=== PATIENT | female | born 2005 | race Two or more races ===

== ENCOUNTER 2024-07-02 09:55 | Emergency (ER) | payer MEDICAID, SELFPAY ==
[2024-07-02 10:11] VITALS: BP 142/93; PULSE 110; RESP 18; TEMP 36.9; O2SAT 98
--- NOTE | 2024-07-02 10:15 | XR_ITS ---
Examination: CT abdomen with intravenous contrast CT pelvis with intravenous contrast 2-D coronal reconstructions 2-D sagittal reconstructions Date and time of exam:July 02, 2024 at 1207 hours Comparison October 04, 2017 INDICATIONS: Severe upper abdominal pain with nausea today. CTDI: vol (mGy) 7.70 DLP: (mGycm) 439 Technique: Multiple axial sections of the abdomen and pelvis have been obtained. 64 slice high-resolution scanner used. 3 mm axial sections have been obtained, post intravenous injection 60 cc [id number] 2-D sagittal coronal reconstructions Low dose protocols, automated exposure, adjustment MA KV according to patient size, iterative reconstruction techniques FINDINGS: No focal liver lesions or biliary tract dilatation No gallstones AP splenic dimension 12 cm No pancreatic mass or peripancreatic edema Normal adrenal glands No renal or ureteral calculi, Minimal dilatation of the renal collecting systems with minimal wall thickening of the pelvicalyceal systems Aorta normal size No pericecal inflammatory change No bowel obstruction Moderate colonic ileus No diverticulitis Anteverted uterus no adnexal mass Mild thickening of the rectal wall Intact osseous structures IMPRESSION: Suspicious for urinary tract infection Moderate colonic ileus No bowel obstruction Mild thickening the rectal wall, consider proctitis
--- NOTE | 2024-07-02 10:16 | XR_ITS ---
Examination: Abdomen sonogram, Limited Date and time of exam: July 02, 2024 1120 hours INDICATIONS: Abdominal pain with nausea vomiting beginning today Technique: Real-time crane scale transabdominal sonographic images of the upper abdomen obtained. Findings: Normal gallbladder Normal common bile duct 0.3 cm Pancreatic head 2.4 cm Liver 14.6 cm smooth contour fatty infiltration no focal liver lesions Normal hepatopedal portal venous flow Patent IVC IMPRESSION: Normal gallbladder Normal common bile duct Fatty liver no focal liver lesions
--- NOTE | 2024-07-02 10:36 | EDNOTE_ITS ---
ED Abdominal Pain RME/HPI General Chief Complaint: Abdominal Pain Stated complaint: GASTRITIS, N/V SINCE 4 AM, WANT GI COCKTAIL Time seen by provider: 07/02/24 10:00 Arrival date/time: 07/02/24 09:55 RME / HPI RME / HPI narrative: This section includes all my notes and documentations, including HPI, PE, and ED course.? Kannan Mccullough MD HPI: 19-year-old female here with several days of severe abdominal pain, extremely severe in the past several hours. With nausea and vomiting. No obvious fever. Minimal oral intake. No diarrhea or constipation. No urinary symptoms. No other complaints. ROS: All negative except as documented in HPI. Physical Exam: General:? Alert and oriented.? In severe pain. Eyes:? Conjunctivae and lids clear.? ENT:? No nasal congestion.? Neck:? Supple.? Heart:? RRR.? Lungs:? No respiratory distress.? Good air movement.? No rhonchi, wheezing, rales.?? Abdomen:? Soft with severe tenderness, difficult to localize. Decreased BS. No obvious rebound or guarding. Back: No CVA tenderness. Legs:? No clubbing, cyanosis, edema.? Skin:? Warm and dry.?? Neuro:? Alert and oriented X 3.?? I reviewed all diagnostic test results. My review of the abdominal CT report is?ileus. My review of the GB ultrasound report is no acute findings. Blood tests and urine tests?remarkable for UTI. At this point, diagnoses include?gastritis and UTI. Treatment here included?IV fluid and Zofran and Dilaudid and Rocephin. Significant improvement noted. Recommended supportive care and more outpatient workup. Based on my best medical judgment, made decision no further evaluation or treatment indicated at this time.? Patient understands and agrees to the discharge instructions customized and printed, see below. Discharge instructions from Dr. Mccullough: ?After evaluation, your symptoms are due to stomach ulcer (see attached handout).? ?To help heal the ulcer, take Omeprazole 40 mg every morning and Famotidine 40 mg at bedtime for a month. ?Zofran for nausea/vomiting.? Clear liquid diet for 24 hours.? Then slowly advance diet as tolerated. ?Avoid food and beverages that can trigger and worsen ulcers.? See attached handout. --Tylenol with Codeine for severe pain. --Cefdinir for UTI. For good hydration, increase oral fluid and maintain clear urine. If dark or yellow, increase oral fluid. ?See a private doctor on 07/05/2024 for recheck and further care. Ask to help you get more care not available here in the ER.? Such as EGD or scoping the stomach, colonoscopy or scoping the colon, and a referral to see a wrapper layer and examiner soft work. Ask to review all test results and official radiology reports, to make sure you receive all necessary follow-ups and monitoring, including final urine culture results from today. ?Seek immediate medical care with worsening or with any concerns. Kannan Mccullough MD Related Data Previous Rx's ?Medication ?Instructions ?Recorded aluminum-mag hydroxide-simethicone 5 ml PO QID PRN ind igestion #3,000 11/30/19 400 mg-400 mg-40 mg/5 mL oral susp mL (Maalox Maximum Strength) famotidine 40 mg tablet (Pepcid) 40 mg PO BID prn epig astric pain 11/30/19 #20 tabs ondansetron HCl 4 mg tablet 4 mg PO Q8H PRN nausea and 11/30/19 (Zofran) vomiting #20 tabs acetaminophen 300 mg-codeine 30 mg 2 tab PO TID PRN pa in #20 tabs 07/02/24 tablet cefdinir 300 mg capsule 300 mg PO BID #14 caps 07/02 famotidine 40 mg tablet 40 mg PO QDAY #30 tabs 07/02 omeprazole 40 mg capsule,delayed 40 mg PO QDAY #30 cap s 07/02/24 release ondansetron 4 mg disintegrating 4 mg PO TID PRN nausea and 07/02/24 tablet vomiting 5 days #10 tabs Allergies Allergy/AdvReac Type Severity Reaction Status Date / Time No Known Allergies Allergy Verified 07/02/24 09:56 Review of Systems Review of Systems Systems Reviewed: All systems reviewed, normal except as documented Past Medical History Past Medical History CARDIAC: Negative Cardiac Disorders or Congestive Heart Failure RESPIRATORY: Negative Chronic Obstructive Pulmonary Disease (COPD) or Asthma GASTROINTESTINAL: Positive Gastrointestinal Disorders GENITOURINARY: Negative Renal Disease ENDOCRINE: Negative Diabetes Mellitus Type 1 or Diabetes Mellitus Type 2 HEMATOLOGIC: Negative Sickle Cell Disease Social History SMOKING STATUS: Never smoker ED Exam Narrative Physical exam: As noted in HPI Course Quality Measures none Orders Category Date Time Status CT Screening NOW Care 07/02/24 10:15 Active Saline [Insert IV] NOW Care 07/02/24 10:[address] abdomen pelvis w con Stat Exams 07/02/24 10:15 Completed US gall bladder Stat Exams 07/02/24 10:16 Completed Amylase Stat Lab 07/02/24 10:33 Completed CBC Stat Lab 07/02/24 10:33 Completed CMP [Comprehensive Metabolic Panel] Stat Lab 07/02/24 10:33 Completed HCG Qualitative,Urine Stat Lab 07/02/24 13:51 Completed HCG,Qualitative Serum Stat Lab 07/02/24 10:33 Completed Lipase Stat Lab 07/02/24 10:33 Completed Magnesium Stat Lab 07/02/24 10:33 Completed UA, C/S IF [Urinalysis, C/S if Indicated] Stat Lab 07/02/24 13:51 Completed HYDROmorphone INJ [Dilaudid Inj] Med 07/02/24 10:14 Discontinued 1 mg IVP X1 ONE Ondansetron Inj [Zofran Inj] Med 07/02/24 10:14 Discontinued 4 mg IV X1 ONE Sodium Chloride 0.9% 1000 ml [Ns] 1,000 ml Med 07/02/24 10:14 Discontinued IV 999 mls/hr cefTRIAXone [Rocephin] 1,000 mg Med 07/02/24 14:25 Discontinued Sodium Chloride 0.9% (P) [Ns 0.9% (P)] 50 ml IV X1 Vital Signs Vital signs: Vital Signs Temperature 98.4 F 07/02/24 10:11 Pulse Rate 110 H 07/02/24 10:11 Respiratory Rate 18 07/02/24 10:11 Blood Pressure 142/93 H 07/02/24 10:11 Pulse Oximetry (%) 98 07/02/24 10:11 Oxygen Delivery Method Room Air 07/02/24 10:11 Pulse ox is 98% on room air which is adequate. Abdominal Pain MDM Patient data External records reviewed:: [facility] previous records (I reviewed ED visit on 11/30/2019) Clinical information provided by:: patient and parent Social determinants that could affect healthcare access:: none Patient has the following chronic illnesses:: Gastritis How is presenting disease/condition affected by chronic disease/condition?: exacerbated by Evaluation data The following diagnostics were reviewed and interpreted by me:: lab results and radiology exam(s) Lab and/or radiology exams considered but not ordered:: None Interpretation Summary: Gastritis and UTI Medications / Prescriptions Medications or Prescriptions considered but not ordered:: None Medication administrations:: Medication Administration History Discontinued Medications Hydromorphone HCl (Hydromorphone Inj 2 Mg/Ml Vial) 1 mg IVP X1 ONE Stop: 07/02/24 10:15 Last Admin: 07/02/24 10:48 Dose: 1 mg Documented By: MIAN Sodium Chloride (Ns) 1,000 mls @ 999 mls/hr IV .Q1H1M ONE Stop: 07/02/24 11:14 Last Admin: 07/02/24 10:46 Dose: 999 mls/hr Documented By: MIAN Ceftriaxone Sodium 1,000 mg/ (Sodium Chloride) 50 mls @ 100 mls/hr IV X1 ONE Stop: 07/02/24 14:54 Ondansetron HCl (Ondansetron Inj 2 Mg/Ml Inj 2 Ml) 4 mg IV X1 ONE; Protocol Stop: 07/02/24 10:15 Last Admin: 07/02/24 10:47 Dose: 4 mg Documented By: MIAN Patient given IV fluids, dilaudid, Zofran Consultations Consultation(s) initiated? (list below): No Diagnosis Differential diagnosis abdominal pain: abdominal pain, acute appendicitis, calculus of kidney, constipation, diverticulitis, endometriosis, gastroenteritis, pancreatitis, small bowel obstruction and other (Gastritis, UTI) Most likely diagnosis given after review of the tests above:: Gastritis and UTI Admission Indicated Admission indicated?: not indicated Explain why admission is indicated or not indicated:: Admission criteria not met Admission Request Was there a request for admission?: No Disposition Plan Disposition Plan: Discharge Discharge Attestation Discharge Attestation: The patient and all family members were given an opportunity to ask questions and understood the discharge instructions. Discharge instructions specifically effects, indications for sooner follow up or return to the emergency department, and the expected course of current diagnosis. Patient condition: Stable Discharge Plan Plan Patient Disposition: HOME (Self Care) Prescriptions/Referrals Prescriptions/Med Rec: New acetaminophen-codeine 300-30 mg tablet 2 tab PO TID MDD 6 PRN (Reason: pain) Qty: 20 0RF famotidine 40 mg tablet 40 mg PO QDAY Qty: 30 0RF omeprazole 40 mg capsule,delayed release(DR/EC) 40 mg PO QDAY Qty: 30 0RF ondansetron 4 mg tablet,disintegrating 4 mg PO TID PRN (Reason: nausea and vomiting) 5 Days Qty: 10 0RF cefdinir 300 mg capsule 300 mg PO BID Qty: 14 0RF No Action ondansetron HCl [Zofran] 4 mg tablet 4 mg PO Q8H PRN (Reason: nausea and vomiting) Qty: 20 0RF famotidine [Pepcid] 40 mg tablet 40 mg PO BID Qty: 20 0RF alum-mag hydroxide-simeth [Maalox Maximum Strength] 400-400-40 mg/5 mL suspension 5 ml PO QID PRN (Reason: indigestion) Qty: 3000 0RF Referrals: Kareem Jeffrey MD [Primary Care Provider] - In 1 week Problem List Clinical Impression: Urinary tract infection, Stomach ulcer Patient/Caregiver Discharge Instructions Discharge Activity: activity as tolerated Education Materials: ED PEPTIC ULCER vs GASTRITIS, ED CYSTITIS Female Adult Additional Instructions: Discharge instructions from Dr. Mccullough: ?After evaluation, your symptoms are due to stomach ulcer (see attached handout).? ?To help heal the ulcer, take Omeprazole 40 mg every morning and Famotidine 40 mg at bedtime for a month. ?Zofran for nausea/vomiting.? Clear liquid diet for 24 hours.? Then slowly advance diet as tolerated. ?Avoid food and beverages that can trigger and worsen ulcers.? See attached handout. --Tylenol with Codeine for severe pain. --Cefdinir for UTI. For good hydration, increase oral fluid and maintain clear urine. If dark or yellow, increase oral fluid. ?See a private doctor on 07/05/2024 for recheck and further care. Ask to help you get more care not available here in the ER.? Such as EGD or scoping the stomach, colonoscopy or scoping the colon, and a referral to see a wrapper layer and examiner soft work. Ask to review all test results and official radiology reports, to make sure you receive all necessary follow-ups and monitoring, including final urine culture results from today. ?Seek immediate medical care with worsening or with any concerns. Print Language: Danish Stand Alone Forms: Madeline Award Info., Patient Portal Info Letter
[2024-07-02] MEDS: SODIUM CHLORIDE 0.9% 1000 ML 1,000 ML 999 ML IV (10:46)
[2024-07-02] MEDS: ONDANSETRON INJ 2 MG/ML INJ 2 ML 4 MG IV (10:47)
[2024-07-02] MEDS: HYDROmorphone INJ 2 MG/ML VIAL 1 MG IVP (10:48)
[2024-07-02 10:52] LABS: Basophils # (Auto) 0.1 Thou/mm3 (0.0-0.2); Basophils % (Auto) 0 % (0-2.5); Eosinophils % (Auto) 0 % (0-10); Hematocrit 40.8 % (36.0-46.0); Hemoglobin 14.2 g/dL (12.0-16.0); Immature Granulocytes % (Auto) 1 % (0-0); Immature Granulocytes Auto 0.12 Thou/mm3 (0.00-0.00); Lymphocytes # (Auto) 1.6 Thou/mm3 (1.0-4.8); Lymphocytes % (Auto) 8 % (10-50); Mean Corpuscular HGB Conc 34.8 g/dl (31.0-37.0); Mean Corpuscular Hemoglobin 28.5 pg (25.0-35.0); Mean Corpuscular Volume 82 fL (80-100); Monocytes # (Auto) 1.2 Thou/mm3 (0.0-0.8); Monocytes % (Auto) 6 % (0-12); Neutrophils # (Auto) 17.2 Thou/mm3 (1.8-7.7); Neutrophils % (Auto) 85 % (37-80); Nucleated Red Blood Cell % 0 /100 WBC (0); Platelet Count 256 Thou/mm3 (140-440); RDW Standard Deviation 37.3 fL (36.4-46.3); Red Blood Count 4.98 Miln/mm3 (4.00-5.20); White Blood Count 20.2 Thou/mm3 (3.6-11.0)
[2024-07-02 10:54] VITALS: BMI 22.1
[2024-07-02 11:19] LABS: Alanine Aminotransferase 10 U/L (10-49); Albumin, Serum 5.3 gm/dL (3.5-5.0); Albumin/Globulin Ratio 1.8 (1.2-2.2); Alkaline Phosphatase 78 U/L (46-116); Amylase 91 U/L (30-118); Anion Gap 9 (7-16); Aspartate Amino Transferase 18 U/L (0-34); BUN/Creatinine Ratio 13 Ratio (12-20); Bilirubin,Total 0.6 mg/dL (0.3-1.2); Blood Urea Nitrogen 12 mg/dL (9-23); Calcium 9.7 mg/dL (8.3-10.6); Calcium (Corrected) 9.7 mg/dL (8.5-10.1); Carbon Dioxide 23.1 mMol/L (20.0-31.0); Chloride 103 mMol/L (98-107); Creatinine (Component) 0.9 mg/dL (0.6-1.3); Estimated Creatinine Clearance 103.3 mL/min (>60); Globulin 2.9 gm/dL (2.3-3.5); Glucose 130 mg/dL (74-106); Lipase 29 U/L (12-53); Magnesium 1.9 mg/dL (1.6-2.6); Osmolality,Calculated 271 (275-295); Potassium 4.3 mMol/L (3.4-5.1); Sodium 135 mMol/L (136-145); Total Protein 8.2 gm/dL (5.7-8.2); eGFR > 60 See Note
[2024-07-02 11:23] LABS: HCG,Qualitative Serum Negative
[2024-07-02 11:31] VITALS: BP 128/78; PULSE 85; RESP 16; TEMP 36.8; O2SAT 100
[2024-07-02 14:05] LABS: Collection Type, Urine Clean Catch
[2024-07-02 14:12] LABS: Bacteria,Urine 4+; Bilirubin,Urine Negative (Negative); Blood,Urine Negative (Negative); Clarity,Urine Clear (Clear/Hazy); Color,Urine Lt-Yellow (Lt Yel-Yel); Culture Indicated,Urine Contaminated; Glucose, Urine Negative (Negative); Ketones,Urine Negative (Negative); Leukocyte Esterase,Urine Positive (Negative); Nitrite,Urine Negative (Negative); PH,Urine 6.5 (5.0-7.0); Protein,Urine Negative (Neg - Trace); RBC,Urine 12 /hpf (0-3); Squamous Epithelial Cell,Urine 15 /hpf (0-5); Urobilinogen,Urine Negative mg/dL (0.0-1.0); WBC,Urine 8 /hpf (0-5)
[2024-07-02 14:26] LABS: HCG Qualitative,Urine Negative
== END 2024-07-02 15:05 | disposition home or self-care (01) ==
PROVIDERS: Emergency Provider Emergency Medicine; PCP Family Medicine
DX: K25.9 Gastric ulcer, unspecified as acute or chronic, without hemorrhage or perforation (principal); N39.0 Urinary tract infection, site not specified; K56.7 Ileus, unspecified; K29.70 Gastritis, unspecified, without bleeding
CPT/HCPCS: 36415; 74177; 76705; 80053; 81001; 81025; 82150; 83690; 83735; 84703; 85025; 96374; 96375; 99285; A4649; J2405; J3490; J7030; Q9967